=== PATIENT | male | born 1965 | race Caucasian/White ===

== ENCOUNTER 2021-06-27 12:52 | Emergency (ER) | payer BC ==
[~2021-06-27] VITALS: Ht 165.1 cm; Wt 81.6 kg
[~2021-06-27 12:52] MED LIST: CLARITIN10 MG PO; MEDROL DOSEPAK4 MG PO
[2021-06-27 14:27] LABS: BILIRUBIN Negative (Negative); BLOOD 3+ (Negative); CLARITY Clear (Clear); COLOR Yellow (Yellow); GLUCOSE Negative (Negative); KETONE Trace (Negative); LEUKO ESTERASE Negative (Negative); NITRITE Negative (Negative); PH 5.5 (4.5-8.0); SPECIFIC GRAVITY 1.025 (1.001-1.030); UROBILINOGEN 0.2 E.U./dl (0.0-1.0)
[2021-06-27 14:38] LABS: BACTERIA 2+; EPITHELIAL CELLS 0-2; MUCOUS 1+; RBC TNTC rbc/hpf (0-2)
[2021-06-27 15:28] LABS: BASO % 0.2 % (0.0-1.0); EOS % 0.2 % (1.0-4.0); HEMATOCRIT 42.1 % (42.0-52.0); LYMPH # 0.9 10*3/uL (1.3-4.4); LYMPH % 8.9 % (27.0-41.0); MEAN CELL VOLUME 92.9 fl (80.0-94.0); MEAN CORPUSCULAR HGB 31.6 pg (27.0-31.0); MEAN PLATELET VOLUME 9.1 fl (9.6-12.3); MONO # 0.4 10*3/uL (0.1-1.0); MONO % 3.8 % (3.0-9.0); NEUT # 8.8 10*3/uL (2.3-7.9); NEUT % 86.5 % (47.0-73.0); PLATELET COUNT AUTOMATED 285 10*3/uL (130-400); RED BLOOD COUNT 4.53 10*6/uL (4.50-5.90); RED CELL DISTRI WIDTH 12.6 % (0-14.5); WHITE BLOOD COUNT 10.2 10*3/uL (4.8-10.8)
[2021-06-27 15:41] LABS: BUN 21 mg/dl (7-24); CHLORIDE 102 mmol/L (98-107); CREATININE 1.18 mg/dL (0.70-1.30); POTASSIUM 4.5 mmol/L (3.5-5.1); SODIUM 137 mmol/L (136-145)
[2021-06-27] MEDS ORDERED: NAPROXEN250 MG PO (16:28)
[2021-06-27] MEDS ORDERED: TYLENOL325 M1 PO (16:28)
[2021-06-27] MEDS ORDERED: FLOMAX0.4 MG PO (16:28)
== END 2021-06-27 16:38 | disposition home or self-care (01) ==
LOC: ED 12:52
PROVIDERS: Emergency Medicine
DX: N20.0 Calculus of kidney (principal); N28.1 Cyst of kidney, acquired; R31.9 Hematuria, unspecified

== ENCOUNTER 2022-03-27 02:27 | Emergency (ER) | payer BC ==
[~2022-03-27 02:27] MED LIST changes: +FLOMAX0.4 MG PO; +NAPROXEN250 MG PO; +TYLENOL325 M1 PO
[2022-03-27] MEDS ORDERED: PREDNISONE20 M1 PO (03:28)
[2022-03-27] MEDS ORDERED: AMOX-CLAV 875-1 EACH PO (03:28)
[2022-03-27] MEDS ORDERED: MECLIZINE HCL25 M2 PO (03:28)
== END 2022-03-27 03:59 | disposition home or self-care (01) ==
LOC: ED 02:27
DX: H81.12 Benign paroxysmal vertigo, left ear (principal)